=== PATIENT | female | born 1995 | race Hispanic/Latino ===

== ENCOUNTER 2019-03-31 23:07 | Emergency (ER) | payer OTHER, MEDICAID, SELFPAY ==
[2019-03-31 23:07] VITALS: BP 108/80; PULSE 98; RESP 17; TEMP 36.8; O2SAT 100; BMI 33.3
--- NOTE | 2019-04-01 00:06 | ED.EAR ---
HPI - Ear Problem General Chief complaint: Ear Stated complaint: ear ache Time Seen by Provider: 03/31/19 23:57 Source: patient Mode of arrival: ambulatory Limitations: no limitations History of Present Illness HPI Narrative: Patient is a 23-year-old female who presents with ear pain. She went clip diving today she had sudden pain when she had the water but she says it was not bad however has progressively gotten worse. She denies any drainage or blood from the ear. No fevers. He has not taken anything for pain. She denies any loss of hearing. MD Complaint: ear pain Location: left ear Duration: constant Related Data Home Medications Medication Instructions Recorded Confirmed No Known Home Medications 03/31/19 03/31/19 Allergies Allergy/AdvReac Type Severity Reaction Status Date / Time No Known Drug Allergies Allergy Verified 03/31/19 23:26 Review of Systems Review of Systems GENERAL: Denies chills,fever HEENT: See HPI RESPIRATORY: Denies dyspnea, cough, wheezing CARDIOVASCULAR: Denies chest pain, palpitations GASTROINTESTINAL: Denies nausea, vomiting MUSCULOSKELETAL: Denies extremity pain, injury SKIN: No rash, no laceration, no pruritus NEUROLOGIC: Denies weakness, dizziness, headache, numbness 8 point review of systems is negative except for those stated above and HPI COUNTS INCLUDE 234 BEDS AT THE [facility] Medical History Patient denies significant medical history (Acute) Exam Initial Vital Signs Initial Vital Signs: Vital Signs Temperature 98.3 F 03/31/19 23:07 Pulse Rate 98 H 03/31/19 23:07 Respiratory Rate 17 03/31/19 23:07 Blood Pressure 108/80 03/31/19 23:07 Pulse Oximetry 100 03/31/19 23:07 GENERAL: Well-appearing, well-nourished and in no acute distress. CARDIOVASCULAR: peripheral pulses in tact, cap refill <2 sec RESPIRATORY: No respiratory distress, speaks in full sentences without difficulty EXTREMITIES: Normal range of motion, no clubbing or edema. Neurovascularly intact NEUROLOGICAL: Cranial nerves II through XII grossly intact. Normal gait and speech. SKIN: Warm, dry, no petechiae, no rashes or lesions. HENMT Ears: TM normal on the right and TM abnormal perforated with bloody discharge (Very mild not completely ruptured) on the left Course Orders Ordered: Discontinued Medications Ibuprofen (Advil) 800 mg PO NOW ONE Stop: 04/01/19 00:11 Last Admin: 04/01/19 00:13 Dose: 800 mg Vital Signs - 8 hr 03/31/19 23:07 04/01/19 00:20 Temperature 98.3 F Pulse Rate 98 H 90 Respiratory Rate 17 15 Blood Pressure 108/80 105/79 Pulse Oximetry 100 99 Medical Decision Making MDM Narrative Medical decision making narrative: Not complete rupture of membrane but definite punctured area. Discussed with her not to put anything in her ears. Discharge Plan Departure Patient Disposition: Home Clinical Impression: Perforation of tympanic membrane, traumatic Qualifiers: Encounter type: initial encounter Laterality: left Qualified Code(s): S09.22XA - Traumatic rupture of left ear drum, initial encounter Discharge Date/Time: 04/01/19 00:20 Interventions: ED Discharge Assessment Last Done: 04/01/19 00:20 Instructions: Ruptured Eardrum Activity Restrictions/Additional Instructions: *You have been diagnosed with a partially perforated ear drum *What to do: Ear drum is not completely ruptured. This will heal on its own over the next few days. Do not put anything in her ear do not go swimming *Continue to take medications as directed Motrin 800 mg every 8 hours if needed for pain *Follow up with your primary care provider in 2-3 days *Return to ER if you should have increased drainage, increased pain, decreased hearing or any new, worsening or concerning symptoms Prescriptions: No Action No Known Home Medications RF: 0
[2019-04-01] MEDS: IBUPROFEN 400 MG TABLET 800 MG PO (00:13)
[2019-04-01 00:20] VITALS: BP 105/79; PULSE 90; RESP 15; O2SAT 99
== END 2019-04-01 00:20 | disposition home or self-care (01) ==
PROVIDERS: Emergency Provider Emergency Medicine
DX: S09.22XA Traumatic rupture of left ear drum, initial encounter (principal); W16.42XA Fall into unspecified water causing other injury, initial encounter; Y93.11 Activity, swimming
CPT/HCPCS: 99282

== ENCOUNTER 2021-11-09 22:34 | Emergency (ER) | payer OTHER, MEDICAID, SELFPAY ==
[2021-11-09 22:42] VITALS: BP 115/75; PULSE 103; RESP 16; TEMP 37; O2SAT 100; BMI 35.9
--- NOTE | 2021-11-09 23:31 | ED_ITS ---
HPI - Skin/Abscess/Foreign Bdy General Chief complaint: Skin/Abscess/Foreign Body Stated complaint: skin infection, nausea, not feeling well Time Seen by Provider: 11/09/21 22:47 Source: patient Mode of arrival: Ambulatory Limitations: no limitations History of Present Illness HPI narrative: 26-year-old female nonsmoker with noncontributory medical history presents with a chief complaint of feeling ill for the past 3 or 4 days including nausea and body aches with some chills. She states that she was seen and evaluated at the walk-in clinic for a painful bump on her left anterior abdomen which was thought to be infectious, the patient was put on antibiotics and has felt poorly. She denies any deep abdominal pain and has had no change in bowel habits. She denies urinary complaints such as dysuria, frequency or urgency. She states that the infectious ?bump? started draining pus over the past day or so. Related Data Home Medications Medication Instructions Recorded Confirmed celecoxib 200 mg capsule 200 mg PO DAILY 11/06/21 11/06/21 diclofenac sodium 75 mg 75 mg PO BID 11/06/21 11/06/21 tablet,delayed release ergocalciferol (vitamin D2) 1,250 1,250 mcg PO QMONTH 11/06/21 11/06/21 mcg (50,000 unit) capsule isotretinoin 20 mg capsule 40 mg PO ONCE 11/06/21 11/06/21 (Accutane) isotretinoin 40 mg capsule 40 mg PO ONCE 11/06/21 11/06/21 ketoconazole 2 % shampoo 1 applic TOPICAL 2XW 11/06/21 11/06/21 qmonrtsb-deekzkbudm-hihkfntvc-lido g TOPICAL 11/06/21 11/06/21 3.5 mg-500 unit/gram topical cream phentermine 15 mg capsule 15 mg PO DAILY 11/06/21 11/06/21 triamcinolone acetonide 0.025 % 1 applic TOPICAL DAILY 11/06/21 11/06/21 topical cream Previous Rx's Medication Instructions Recorded mupirocin 2 % topical ointment 1 applic TOPICAL BID-TID 7 Days 11/06/21 #22 g sulfamethoxazole 800 1 tab PO BID 7 Days #14 tab 11/06/21 mg-trimethoprim 160 mg tablet (Bactrim DS) ondansetron 4 mg disintegrating 4 mg PO TID-QID PRN #10 tab 11/10/21 tablet Allergies Allergy/AdvReac Type Severity Reaction Status Date / Time No Known Drug Allergies Allergy Verified 11/06/21 08:49 Review of Systems Review of Systems Narrative: GENERAL: See HP HEENT: Denies sinus pain, ear pain, sore throat, difficulty swallowing, dizzi ness. RESPIRATORY: Denies dyspnea, cough, wheezing, hemoptysis, sputum. CARDIOVASCULAR: Denies chest pain, palpitations, orthopnea, edema, GASTROINTESTINAL: Denies nausea, vomiting, abdominal pain, diarrhea, constipation, melena. : Denies dysuria, frequency, incontinence, hematuria, urinary retention. MUSCULOSKELETAL: denies weakness, joint pain, or bony pain SKIN: See HPI NEUROLOGIC: Denies weakness, headache, numbness, change in speech, confusion, seizures, incoordination. PSYCHIATRIC: No concerning psychosocial issues. 12 point review of systems is negative except for those stated above Patient History Medical History (Updated 11/10/21 @ 01:43 by Garrick Blanca DO) Patient denies significant medical history Social History Smoking Status: Never smoker Smoking Status: Never smoker Exam Narrative Exam Narrative: GENERAL: [26 year old patient appears stated age. Well-developed patient, in mild distress. HEAD: Atraumatic. Normocephalic. EYES: Pupils equal round and reactive. Extraocular motions intact. No scleral icterus. No injection or drainage. ENT: Nose without bleeding, purulent drainage. Throat without erythema, tonsillar hypertrophy or exudate. Airway patent. NECK: Trachea midline. Non tender CARDIOVASCULAR: Regular rate and rhythm without murmurs, gallops, or rubs. RESPIRATORY: Clear to auscultation. Breath sounds equal bilaterally. No wheezes, rales, or rhonchi. GASTROINTESTINAL: Abdomen soft, 6 x 3 cm area of erythema and induration with spontaneous drainage of purulent material and left anterior abdomen. Deep palpation is not painful, remainder of abdomen is soft with bowel sounds present Nondistended. EXTREMITIES: No edema or joint tenderness. BACK: Nontender without deformity or crepitance. No flank tenderness. NEURO: AOx3. SKIN: No rash or erythema of visible areas Initial Vital Signs Initial Vital Signs: Vital Signs Temperature 98.6 F 11/09/21 22:42 Pulse Rate 103 H 11/09/21 22:42 Respiratory Rate 16 11/09/21 22:42 Blood Pressure 115/75 11/09/21 22:42 Pulse Oximetry 100 11/09/21 22:42 Course Orders Ordered: ED Orders 11/09/21 22:48 Wound Culture and Gram Stain Stat 11/09/21 23:35 Complete Blood Count AUTO DIFF Stat Comprehensive Metabolic Panel Stat HCG Quantitative /Beta subunit Stat 11/10/21 00:26 CT abdomen pelvis w con Stat Discontinued Medications Sodium Chloride (Normal Saline 0.9%) 1,000 mls @ 1,000 mls/hr IV BOLUS ONE Stop: 11/10/21 00:39 Last Infusion: 11/10/21 01:53 Dose: 0 mls/hr Documented by: Admin: 11/09/21 23:50 Dose: 1,000 mls/hr Documented by: MACARIO Ondansetron HCl (Ondansetron 4 Mg/2 Ml Inj) 4 mg IV NOW ONE Stop: 11/09/21 23:41 Last Admin: 11/09/21 23:50 Dose: 4 mg Documented by: MACARIO Ondansetron HCl (Ondansetron 4 Mg Odt Prepack) 1 bottle MISC SEEINSTR ONE Stop: 11/10/21 01:44 Last Admin: 11/10/21 01:53 Dose: 1 bottle Documented by: MACARIO Vital Signs Vital signs: Vital Signs - 8 hr 11/09/21 22:42 Temperature 98.6 F Pulse Rate 103 H Respiratory Rate 16 Blood Pressure 115/75 Pulse Oximetry 100 MDM - Skin/Abscess/Foreign Bdy Lab Data Result diagrams: 11/09/21 23:35 11/09/21 23:35 Labs: Lab Results 11/09/21 11/09/21 11/09/21 Range/Units 23:35 23:35 23:35 WBC 8.3 (4.5-11.0) X10^3/uL RBC 3.94 L (4.0-5.2) X10^6/uL Hgb 11.6 L (12.0-16.0) g/dL Hct 34.9 L (36-46) % MCV 88.5 (80-100) fL MCH 29.4 (26-34) PG MCHC 33.2 (30-36) % RDW 13.2 (11.6-14.8) % Plt Count 458 H (150-400) X10^3/uL Neut % (Auto) 55.1 (50-75) % Lymph % (Auto) 33.9 (25-40) % [place] % (Auto) 8.3 (3-14) % Eos % (Auto) 1.8 L (2-4) % Baso % (Auto) 0.9 (0-2) % Neut # (Auto) 4600 (2502-3233) /uL Lymph # (Auto) 2800 (7350-7429) /uL [place] # (Auto) 700 (0-900) /uL Eos # (Auto) 200 (0-450) /uL Baso # (Auto) 100 (0-100) /uL Sodium 133 L (137-145) mmol/L Potassium 4.0 (3.4-5.1) mmol/L Chloride 102 (98-107) mmol/L Carbon Dioxide 26 (22-32) mmol/L BUN 11 (7-17) mg/dL Creatinine 0.85 (0.52-1.04) mg/dL Estimated GFR > 60.0 (>60) mL/min BUN/Creatinine Ratio 12.9 (6-22) Glucose 101 H (70-100) mg/dL Calcium 9.4 (8.4-10.2) mg/dL Total Bilirubin 0.7 (0.2-1.3) mg/dL AST 80 H (14-36) IU/L ALT 104 H (<35) IU/L Alkaline Phosphatase 115 (38-126) U/L Total Protein 8.8 H (6.3-8.2) g/dL Albumin 4.5 (3.5-5.0) g/dL Globulin 4.3 H (1.7-4.1) g/dL Albumin/Globulin Ratio 1.0 (1.0-2.8) HCG, Quant < 2.4 mIU/mL Imaging Data CT scan - abdomen/pelvis: Radiologist's Impression: Close Abdomen/Pelvis CT (Signed) Jose Garza - 11/10/[address] [address] [address] Scan Report Signed Patient: Emy Piña MR#: [id number] : 1995 Acct:[id number] Age/Sex: 26 / F Date of Service: 11/10/21 Loc: ED Accession Number: [id number] ?? Procedure: CT abdomen pelvis w con Ordering Provider: Garrick Blanca D.O. PROCEDURE:? CT ABDOMEN PELVIS W CON ? INDICATIONS:? large abdominal wall abscess, nausea, vomiting, fever ? TECHNIQUE:? After the administration of intravenous contrast, axial sections acquired from the lung bases to the pubic symphysis.? Coronal and sagittal reformats were performed.? For radiation dose reduction, the following was used:? automated exposure control, adjustment of mA and/or kV according to patient size.? ? COMPARISON:? None. ? FINDINGS:? Image quality:? Excellent.? ? Lung bases:? Unremarkable. Heart:? No significant findings. ? ABDOMEN: Liver:? Unremarkable.? ? Gallbladder:? Unremarkable.? ? Biliary ducts:? Unremarkable.? ? Pancreas:? Unremarkable.? ? Spleen:? Unremarkable.? ? Adrenal Glands:? Unremarkable.? ? Kidneys and Ureters:? Unremarkable.? ? ? Stomach and Bowel:? Stomach, small bowel loops, and colon are unremarkable.? Peritoneum:? No abnormal intraperitoneal fluid.? No free air.? ? Ventral Wall: ? No hernias.? Vague increased density in the left anterior lateral abdominal subcutaneous fat is consistent with cellulitis.? No abscess.? No soft tissue gas.? There is a small focal area of increased density in the right lateral subcutaneous fat which potentially also may represent an area of inflammation or infection.2 Abdominal Nodes:? No retroperitoneal or mesenteric adenopathy by size criteria.? Vessels:? Aorta and inferior vena cava are normal in size.? ? PELVIS: Pelvic Organs:? Unremarkable.? ? Bladder:? Unremarkable.? ? Pelvic Nodes: No enlarged lymph nodes.? Miscellaneous: No hernias are seen. ? ? ? Bones:? Unremarkable.? IMPRESSION:? ? 1. Probable cellulitic change involving the left anterior lateral subcutaneous fat and possible additional areas cellulitic change in the right lateral subcutaneous fat. ? 2. No abscess identified.? No other significant findings.? ? ? Dictated by: Jose Garza M.D. on 11/10/2021 at 1:27 ? ? Approved by: Jose Garza M.D. on 11/10/2021 at 1:30 ? MDM Narrative Medical decision making narrative: 26-year-old female with reassuring history and physical exam presents feeling ill with spontaneously draining cutaneous abscess. She has very reassuring labs and imaging. She feels much better after above-stated therapies. Pain is well controlled, she is tolerating orals. Extensive return precautions discussed and questions answered to her apparent satisfaction Discharge Plan Departure Patient Disposition: Home Clinical Impression: Abscess of skin or subcutaneous tissue Instructions: DI for Skin Abscess Activity Restrictions/Additional Instructions: *You have been diagnosed with [superficial cutaneous abscess. Your history and physical exam are reassuring, labs and CT scan demonstrate no significant underlying issue other than this infection which has been appropriately treated thus far *What to do: *Please continue to take your regular medications as directed. [ x] New medication prescriptions sent to your pharmacy: [[facility] ] [ ] New medication written as a paper prescription [ ] No new medications given *Please follow up with your primary care provider in 2-3 days, call for an ap pointment. Let them know you were seen in the Emergency Department and that we ask that you be seen in follow up. We will electronically transmit a record of today's note if your PCP is in our system *If you do not have a primary care provider please contact the [facility] Resource line at [phone]. They will ask some questions about your medical history and help get you set up with a doctor in the community. *Return to Emergency Department if you should have any new, worsening or co ncerning symptoms, such as [fever greater than 101 F, shaking chills, worsening pain, persistent vomiting or other bothersome symptoms] Prescriptions: New ondansetron 4 mg tablet,disintegrating 4 mg PO TID-QID PRN (Reason: nausea and vomiting) Qty: 10 0RF No Action isotretinoin [Accutane] 20 mg capsule 40 mg PO ONCE 0RF Rx Instructions: must administer with a meal/food phentermine 15 mg capsule 15 mg PO DAILY 0RF Rx Instructions: must administer 2 hours after breakfast neomy dgfi-dzthdjx-pmnv-lido 3.5-500 mg-unit/gram cream topical 0RF triamcinolone acetonide 0.025 % cream 1 applic topical DAILY 0RF ketoconazole 2 % shampoo 1 applic topical 2XW 0RF isotretinoin 40 mg capsule 40 mg PO ONCE 0RF Rx Instructions: must administer with a meal/food diclofenac sodium 75 mg tablet,delayed release (DR/EC) 75 mg PO BID 0RF celecoxib 200 mg capsule 200 mg PO DAILY 0RF ergocalciferol (vitamin D2) 1,250 mcg (50,000 unit) capsule 1,250 mcg PO QMONTH 0RF sulfamethoxazole-trimethoprim [Bactrim DS] 800-160 mg tablet 1 tab PO BID 7 Days Qty: 14 0RF mupirocin 2 % ointment 1 applic topical BID-TID 7 Days Qty: 22 0RF Referrals: Miscellaneous,Doctor, MD [Primary Care Provider] -
[2021-11-09 23:49] LABS: Add Manual Diff / Slide Review NO; Basophils Absolute Auto 100 /uL (0-100); Basophils Percent Auto 0.9 % (0-2); Eosinophils Absolute Auto 200 /uL (0-450); Eosinophils Percent Auto 1.8 % (2-4); Hematocrit 34.9 % (36-46); Hemoglobin 11.6 g/dL (12.0-16.0); Lymphocytes Absolute Auto 2800 /uL (1100-4500); Lymphocytes Percent Auto 33.9 % (25-40); Mean Corpuscular HGB Conc 33.2 % (30-36); Mean Corpuscular Hemoglobin 29.4 PG (26-34); Mean Corpuscular Volume 88.5 fL (80-100); Monocytes Absolute Auto 700 /uL (0-900); Monocytes Percent Auto 8.3 % (3-14); Neutrophils Absolute Auto 4600 /uL (1500-7000); Neutrophils Percent Auto 55.1 % (50-75); Platelet Count 458 X10^3/uL (150-400); Red Blood Cell Count 3.94 X10^6/uL (4.0-5.2); Red Cell Distribution Width 13.2 % (11.6-14.8); White Blood Cell Count 8.3 X10^3/uL (4.5-11.0)
[2021-11-09] MEDS: ONDANSETRON 4 MG/2 ML INJ IV (23:50)
[2021-11-09] MEDS: SODIUM CHLORIDE 0.9% 1,000 ML 1000 ML IV (23:50)
[2021-11-09 23:52] LABS: Alanine Aminotransferase 104 IU/L (<35); Albumin 4.5 g/dL (3.5-5.0); Alkaline Phosphatase 115 U/L (38-126); Aspartate Aminotransferase 80 IU/L (14-36); BUN Creatinine Ratio 12.9 (6-22); Bilirubin Total 0.7 mg/dL (0.2-1.3); Blood Urea Nitrogen 11 mg/dL (7-17); Calcium 9.4 mg/dL (8.4-10.2); Carbon Dioxide 26 mmol/L (22-32); Chloride 102 mmol/L (98-107); Estimated Glomerular Filt Rate > 60.0 mL/min (>60); Globulin 4.3 g/dL (1.7-4.1); Glucose 101 mg/dL (70-100); HEMOLYSIS 16 (0-50); Sodium 133 mmol/L (137-145); Total Protein 8.8 g/dL (6.3-8.2)
[2021-11-10 00:13] LABS: HCG Quantitative /Beta subunit < 2.4 mIU/mL
--- NOTE | 2021-11-10 00:26 | DI.CT.S_ITS ---
PROCEDURE: CT ABDOMEN PELVIS W CON INDICATIONS: large abdominal wall abscess, nausea, vomiting, fever TECHNIQUE: After the administration of intravenous contrast, axial sections acquired from the lung bases to the pubic symphysis. Coronal and sagittal reformats were performed. For radiation dose reduction, the following was used: automated exposure control, adjustment of mA and/or kV according to patient size. COMPARISON: None. FINDINGS: Image quality: Excellent. Lung bases: Unremarkable. Heart: No significant findings. ABDOMEN: Liver: Unremarkable. Gallbladder: Unremarkable. Biliary ducts: Unremarkable. Pancreas: Unremarkable. Spleen: Unremarkable. Adrenal Glands: Unremarkable. Kidneys and Ureters: Unremarkable. Stomach and Bowel: Stomach, small bowel loops, and colon are unremarkable. Peritoneum: No abnormal intraperitoneal fluid. No free air. Ventral Wall: No hernias. Vague increased density in the left anterior lateral abdominal subcutaneous fat is consistent with cellulitis. No abscess. No soft tissue gas. There is a small focal area of increased density in the right lateral subcutaneous fat which potentially also may represent an area of inflammation or infection.2 Abdominal Nodes: No retroperitoneal or mesenteric adenopathy by size criteria. Vessels: Aorta and inferior vena cava are normal in size. PELVIS: Pelvic Organs: Unremarkable. Bladder: Unremarkable. Pelvic Nodes: No enlarged lymph nodes. Miscellaneous: No hernias are seen. Bones: Unremarkable. IMPRESSION: 1. Probable cellulitic change involving the left anterior lateral subcutaneous fat and possible additional areas cellulitic change in the right lateral subcutaneous fat. 2. No abscess identified. No other significant findings. Dictated by: Jose Garza M.D. on 11/10/2021 at 1:27 Approved by: Jose Garza M.D. on 11/10/2021 at 1:30
[2021-11-10] MEDS: ONDANSETRON 4 MG ODT PREPACK 1 BOTTLE MISC (01:53)
[2021-11-10 02:29] VITALS: BP 113/78; PULSE 75; RESP 15; TEMP 36.4; O2SAT 100
== END 2021-11-10 02:00 | disposition home or self-care (01) ==
PROVIDERS: Emergency Provider Emergency Medicine
DX: L02.211 Cutaneous abscess of abdominal wall (principal)
CPT/HCPCS: 36415; 74177; 80053; 84702; 85025; 87070; 87075; 87077; 87147; 87186; 87205; 96361; 96374; 99284; J2405; Q9967